=== PATIENT | male | born 1975 | race Caucasian/White ===

== ENCOUNTER → 2021-06-08 | Outpatient (CLI) | payer BC | LOC: HEART 5 11:03 | DX: R06.02 Shortness of breath (principal) | CPT/HCPCS: 71046; 94010 ==

== ENCOUNTER → 2022-04-20 | Outpatient (CLI) | payer BC | LOC: SLEEP 11:33 | DX: G47.33 Obstructive sleep apnea (adult) (pediatric) (principal); G47.61 Periodic limb movement disorder | CPT/HCPCS: 95810 ==